=== PATIENT | female | born 1965 | race Caucasian/White ===

== ENCOUNTER 2018-07-19 08:27 | Emergency (ER) | payer OTHER ==
[2018-07-19 09:17] VITALS: BP 133/92
--- NOTE | 2018-07-19 09:22 | UC ---
Back Pain HPI - HPI Summary HPI Summary: Pt with LBP x 5 days. spasm pain left> right states very slow to move, worse with bending and first standing. no paresthesia no radiation no leg weakness no bowel/bladder change no analgesia taken - applied icy hot Pt medications reviewed this visit - History of Current Complaint Chief Complaint: UCBackPain Stated Complaint: LOWER BACK SPASMS Hx Last Menstrual Period: 07/05/18, PERIODS ARE IRREG Pain Intensity: 8 - Allergies/Home Medications Allergies/Adverse Reactions: Allergies Allergy/AdvReac Type Severity Reaction Status Date / Time THIOMERSOL PRESERVATIVE IN Allergy Severe Shortness Uncoded 07/19/18 09:09 RABIES of Breath Home Medications: Home Medications Ibuprofen TAB* [Motrin TAB* 800 MG] 800 mg PO Q6H PRN 07/19/18 [History Confirmed 07/19/18] PMH/Surg Hx/FS Hx/Imm Hx Previously Healthy: Yes - Surgical History Surgical History: Yes Surgery Procedure, Year, and Place: , CHOLYCYSTECTOMY, RIGHT KNEE, RIGHT ANKLE - Family History Known Family History: Positive: Non-Contributory - Social History Lives: With Family Alcohol Use: None Substance Use Type: None Smoking Status (MU): Never Smoked Tobacco Review of Systems All Other Systems Reviewed And Are Negative: Yes Motor: Positive: Other - low back pain, spasm Physical Exam - Summary Physical Exam Summary: Vital Signs Reviewed: Yes A+Ox3, no distress Eyes: Conjunctiva Clear, MITESH. EOM intact and full ENT: Hearing grossly normal TM x 2 clear, mmoist, uvula midline, no exudate, no erythema Neck: Positive: Supple Respiratory: Positive: No respiratory distress, No accessory muscle use + CTA throughout no w/r Cardiovascular: RRR nl s1, s2 no m/r CBT <2 sec abd soft + BS nt/nd no guarding, no distension Musculoskeletal Exam: No spinous pain c/t/l/s + TTP lumbar paraspinal left > right, palpable spasm + SLE with increased pain left back + flex/ext knee, ankle + abduct with discomfort left low back Neurological: Positive: Alert, + sensation throughout 2+ patellar b/l without clonus Psychological: Positive: Normal Response To Family Skin: Positive: no rash, no ecchymosis Vital Signs: Initial Vital Signs Temp 97.7 F 12/24/18 09:11 Pulse 72 07/19/18 09:11 Resp 18 07/19/18 09:11 BP 133/92 07/19/18 09:11 Pulse Ox 100 07/19/18 09:11 Back Pain Course/Dx - Course Course Of Treatment: Pt with left low back muscl pain and spasm x 5 days. no analgesia taken today + icy hot no direct trauma. VSS. + palpable muscle spasm left lumbar area. distal CSM intact. Will give IM Toradol here, flexeril ( driving). heat. stretch. motrin/apap. PCP f/u. return precautions - Differential Dx/Diagnosis Provider Diagnosis: Lumbar paraspinal muscle spasm Discharge - Sign-Out/Discharge Documenting (check all that apply): Patient Departure All imaging exams completed and their final reports reviewed: No Studies - Discharge Plan Condition: Stable Disposition: HOME Prescriptions: Cyclobenzaprine TAB* [Flexeril 10 MG TAB*] 10 mg PO BID PRN #20 tab PRN Reason: back spasms Patient Education Materials: Muscle Spasm (ED) Referrals: Eloy Buenrostro MD [Primary Care Provider] - Additional Instructions: - Okay to alternate ibuprofen (Advil, Motrin) 600mg and Tylenol every 3hours as needed for pain. Take with food. Do NOT take for more than 4-5 days. -Take flexeril - muscle relaxer as prescribed - this medication may cause sedation - do not drive, operate machinery or drink alcohol while taking this medication -Apply moist heat to your back for 20 minutes at a time, 4-5 times a day. Once your muscles are warm, slow gentle stretching exercises are important -Contact your doctor today to arrange a follow-up appointment later this week. -If you pain is uncontrolled, you develop weakness if your legs or difficulty controlling your bowels or bladder - go to an emergency department for further treatment - Billing Disposition and Condition Condition: STABLE Disposition: Home
[2018-07-19] MEDS ORDERED: Ketorolac INJ* 30 MG/ML 1 ML VIAL IM ONE (10:08)
[2018-07-19] MEDS ORDERED: Cyclobenzaprine TAB* 10 MG PO ONE (10:09)
== END 2018-07-19 10:44 | disposition home or self-care (01) ==
LOC: UCCORT 08:27
DX: M62.830 Muscle spasm of back (principal); Z88.8 Allergy status to other drugs, medicaments and biological substances
CPT/HCPCS: 96372; 99212; A9270-GY; G0463; J1885

== ENCOUNTER → 2019-09-12 05:30 | Day surgery (SDC) | payer OTHER ==
[~2019-09-12 05:30] MED LIST: Acetaminophen IV 1GM/100ML * 100 ML ONE; Buffered Lidocaine 1% SYRIN* 1 ML/SYRINGE INTRADERM ONE; Bupivacaine 0.25% SDV* 30 ML ONE; Bupivacaine 0.5% SDV PF* 30ML VIAL ONE; Dexamethasone TAB* 4 MG ONE; Dexamethasone TAB* 4 MG PO ONE; DiMENhydriNATE IV* 50 MG/ML VIAL IV PUSH PRN; Famotidine IV* 10 MG/ML 2 ML (20 mg) IV ONE; Famotidine IV* 10 MG/ML 2 ML (20 mg) ONE; HYDROmorphone INJ1* 1 MG/ML SYRINGE IV PRN; KETAMINE HCL* 50 MG/ML 10 ML VIAL ONE; Ketorolac INJ* 30 MG/ML 1 ML VIAL ONE; Lactated Ringers 1000 ML Bag* 1,000 ML IV SCH; Levalbuterol 0.63MG/3ML NEB* UNIT OF USE INH ONE; Lidocaine 1% w EPI 1:100,000* MDV 20 ML VIAL ONE; Lidocaine 2% PF * 5 ML VIAL ONE; Midazolam* 1 MG/ML 5 ML VIAL (5 MG) ONE; Naloxone* 0.4 MG/ML 1 ML VIAL IV PRN; Ondansetron ODT TAB* 4 MG ONE; Ondansetron ODT TAB* 4 MG PO ONE; PROCHLORPERAZINE INJ 5 MG/ML 2 ML VIAL IV PRN; Propofol* 10 MG/ML 20 ML BTL ONE; Scopolamine 1.5 mg* PATCH ONE; Scopolamine 1.5 mg* PATCH TRANSDERM ONE; Scopolamine PATCH Remove* 1 NOTE MISC PATCH OFF ONE; ceFAZolin 2 GM in NS PREMIX(*) 2 GM/100 ML BAG IVPB ONE; fentaNYL* 50 MCG/ML 2 ML VIAL (100 MCG VIAL) IV PRN; fentaNYL* 50 MCG/ML 2 ML VIAL (100 MCG VIAL) ONE; oxyCODONE TAB* 5 MG TAB ONE; oxyCODONE TAB* 5 MG TAB PO PRN
[2019-09-12 14:49] VITALS: BP 119/81
--- NOTE | 2019-09-13 03:35 | OP ---
DATE OF OPERATION: 09/12/19 - [facility] DATE OF : 67 ATTENDING SURGEON: Marvel Dacosta MD. DRY DIP WORKER: Dorian Langford PA-C. PRE-OP DIAGNOSIS: Right posttraumatic tibiotalar arthritis. POST-OP DIAGNOSIS: Right posttraumatic tibiotalar arthritis. OPERATIVE PROCEDURE: Right total ankle arthroplasty with INFINITY, 2 tibia, 2 talus, and #8 poly. DESCRIPTION OF PROCEDURE: The patient was taken to the operating room where we opened up the anterior approach, centered more over the EHL and the anterior tibial. Medial lateral flap was raised with the nerve and artery reflected laterally. Large osteophytes removed from the anterior tibiotalar joint. We used a gutter prong to establish rotation and then the alignment guide attached to this prong to establish the coronal alignment up the tibia. The patient had significant deformity at the mid shaft, so we cut the tibia into more valgus to correct for the varus deformity. We then placed the tibial alignment jig distally to look at the bone cuts. Potentially we were too proximal, so we displaced this 3 to 4 mm distally and then pinned this with the talus at 90 degrees as well. We then replaced the alignment jig for the tibial cutting jig. We cut the mediolateral gutter and the plafond with the sabre saw as well as the talar dome as a one step using the same jig. We then removed the cutting jig and performed a trial with an 8 mm poly. We felt this was reasonable. With the lateral x-ray well reduced, we pinned the talar jig over the dorsum of the flat cut. Lateral view showed that we were in a satisfactory position as far as the anterior and posterior chamfer cuts with a size 2. This was then pinned and we cut the chamfer in the back and routed the anterior portion of the talar dome. Another trial reduction was then performed and we drilled the tibial pegs. We then sized it as a #2 tibia. We drove the #2 tibial component into the plafond and checked the position on lateral view. The talar component was placed in a neutral position with an 8 trial polyp and we drilled the 2 pegs for the talar component using a #2 talar component driven over the dome with a mallet. Again trial reduction of the 8 poly was satisfactory, so we put a permanent 8 poly in. Irrigated the wound thoroughly, closing the retinaculum with 0 Vicryl interrupted sutures, 2-0 Monocryl for the subcu, and sumaya for the skin, and a compression dressing applied. [id number]/[facility] #: [id number] [facility]
== END | disposition home or self-care (01) ==
LOC: OR 05:30
PROVIDERS: ATTEND Orthopaedic Surgery
DX: M19.171 Post-traumatic osteoarthritis, right ankle and foot (principal); J45.909 Unspecified asthma, uncomplicated; G89.18 Other acute postprocedural pain
CPT/HCPCS: 76000; 81025; A9270-GY; C1776; J0690; J1885; J2250; J2704; J3010; J3490; J8540